=== PATIENT | male | born 1945 | race Caucasian/White ===

== ENCOUNTER 2018-07-17 09:58 | Emergency (ER) | payer OTHER ==
[~2018-07-17] VITALS: Ht 177.8 cm; Wt 85.3 kg
[~2018-07-17 09:58] MED LIST: NIFE60TA3; TOPROL XL50 M1
== END 2018-07-17 11:59 | disposition home or self-care (01) ==
LOC: ER 09:58
DX: I10 Essential (primary) hypertension (principal); R51 Headache